=== PATIENT | female | born 1950 | race Caucasian/White ===

== ENCOUNTER 2016-07-04 05:04 | Day surgery (SDC) | payer OTHER ==
[2016-06-29 11:22] LABS: MANUAL DIFF NEEDED? NO
[2016-06-29 11:24] LABS: BASO% 0.3 % (0.0-0.8); EOS# 0.16 X1000 (0.0-0.7); EOS% 1.7 % (0.0-10.0); HEMATOCRIT 38.4 % (37.0-47.0); HEMOGLOBIN 12.4 g/dL (12.0-16.0); IMM GRAN# 0.02 X1000 (0.0-0.04); IMM GRAN% 0.2 % (0.0-0.5); LYMPH# 1.69 X1000 (1.2-3.4); MCH 30.1 PG (27-31); MCHC 32.3 g/dL (33-37); MCV 93.2 FL (81-99); MONO# 0.82 X1000 (0.11-0.59); MONO% 8.7 % (1.7-9.3); MPV 10.1 FL (7.4-10.4); NEUT% 71.1 % (42.2-75.2); PLT 248 X1000 (130-400); RBC 4.12 XMIL (4.2-5.4)
[2016-06-29 12:04] LABS: AGAP 12; BUN 16 mg/dL (8-22); CALCIUM 9.1 mg/dL (8.8-10.2); CHLORIDE 98 mmol/L (98-107); COSMO 280; POTASSIUM 3.8 mmol/L (3.5-5.1); SODIUM 140 mmol/L (136-145); TCO2 30 mmol/L (25-35)
--- NOTE | 2016-06-29 14:12 | EKG Report ---
Test Performed on : 06/29/2016 11:00:13 AM Test Reason : PAT Blood Pressure : / mmHG Vent. Rate : 065 BPM Atrial Rate : 065 BPM P-R Int : 176 ms QRS Dur : 084 ms QT Int : 360 ms P-R-T Axes : 065 047 153 degrees QTc Int : 374 ms Normal sinus rhythm. ST & T wave abnormality, consider lateral ischemia Nonspecific ST abnormality Inferior leads Abnormal ECG No previous ECGs available Confirmed by Otoniel Claros MD ([id number]) on 06/30/2016 8:56:09 PM
[2016-07-04] MEDS ORDERED: PEPCID ONE (05:31)
[2016-07-04] MEDS ORDERED: LR 1,000 ML ONE ×2 (05:31→09:41)
[2016-07-04] MEDS ORDERED: KEFZOL 1 GM/D5W 50 ML ONE (05:31)
[2016-07-04] MEDS ORDERED: NAROPIN 0.5% ONE (06:36)
[2016-07-04] MEDS ORDERED: MARCAINE 0.25% PF ONE (07:59)
[2016-07-04] MEDS ORDERED: DIPRIVAN 1% ONE (09:08)
[2016-07-04] MEDS ORDERED: FENTANYL ONE (09:08)
[2016-07-04] MEDS ORDERED: VERSED ONE (09:09)
[2016-07-04] MEDS ORDERED: XYLOCAINE-MPF 2% ONE (09:41)
[2016-07-04] MEDS ORDERED: EPHEDRINE ONE (09:41)
[2016-07-04] MEDS ORDERED: QUELICIN (DOSE) ONE (09:41)
[2016-07-04] MEDS ORDERED: OFIRMEV 1000 MG/ISOTONIC SOLN 100 ML ONE (09:41)
[2016-07-04] MEDS ORDERED: ZOFRAN ONE (09:41)
[2016-07-04] MEDS ORDERED: ZEMURON ONE (09:41)
[2016-07-04] MEDS ORDERED: NORCO-10 ONE (09:42)
[2016-07-04] MEDS ORDERED: NORCO-10 PO PRN (09:55)
[2016-07-04 10:40] VITALS: BP 129/57
--- NOTE | 2016-07-04 11:00 | OPERATIVE NOTE ---
PROCEDURE DATE: 07/04/2016 PREOPERATIVE DIAGNOSIS: Right rotator cuff tear and acromioclavicular joint arthritis. POSTOPERATIVE DIAGNOSIS: Right rotator cuff tear, acromioclavicular joint arthritis and partial biceps tear. PROCEDURE PERFORMED: Arthroscopy of right shoulder with subacromial decompression, distal clavicle resection, arthroscopic rotator cuff repair and biceps tenotomy. SURGEON: Emmett Beverly MD PESTICIDE APPLICATOR: NIC Bailey ANESTHESIA: General. IV FLUIDS: 1500 mL of lactated Ringer's. ESTIMATED BLOOD LOSS: 25 mL. COMPLICATIONS: None. INDICATIONS: The patient is a pleasant 66-year-old female with a chronic history of pain and discomfort in the right shoulder. MRI was obtained and revealed findings consistent with a rotator cuff tear and some AC joint arthritis. A recommendation to proceed with arthroscopy was offered with subacromial compression with distal clavicle resection and arthroscopic rotator cuff repair. Risks and benefits of surgery were explained, including risks of anesthesia, , bleeding, infection, failure to relieve pain, postop stiffness, nerve injury, blood clots, and other imponderables. All questions were answered. The patient and family wished to proceed with surgery. DETAILS OF OPERATION: The patient was taken to the operating room and placed supine on the operating table. Once adequate anesthesia was obtained, the patient was placed in the left lateral decubitus position on a beanbag with an axillary roll. The right shoulder was subsequently prepped and draped in the usual sterile fashion. We placed 12 pounds of longitudinal traction. A standard posterior incision was made with an 11 blade. A blunt- tip trocar with overlying cannula was introduced. The arthroscope was introduced. An anterior portal was then made. Inspection of the glenohumeral joint revealed no evidence of chondromalacia. She did have evidence of fraying and partial tearing of the biceps. We proceeded with biceps tenotomy. There was evidence of full-thickness rotator cuff tear involving the supraspinatus tendon. There was no evidence of loose body in the inferior pouch. Attention was then turned to the subacromial space. A lateral incision was made in the standard fashion. A 90-degree ArthroCare wand was introduced to debride the undersurface of the acromion. Subacromial decompression was then conducted from anterior lateral to anterior medial. After smoothly contouring the undersurface, adequate decompression was confirmed through the lateral portal using bony block technique. Attention was then turned to the AC joint. After initial debridement, there was evidence of AC joint arthritis. Subacromial decompression was conducted from anterior lateral to anterior medial. After smoothly contouring the undersurface, adequate decompression was confirmed through the lateral portal using bony block technique. Attention was then turned to the AC joint. After initial debridement, there was evidence of AC joint arthritis. Distal clavicle resection was then performed in the standard fashion along with 1-2 mm of the articular surface of the acromion. There appeared be good resection confirmed through the anterior portal. Attention was then turned to the bursal surface of the rotator cuff. A Passport cannula was placed in the lateral portal. Debridement of the insertion site and light decortication was conducted. A spinal needle was placed along the superior lateral aspect of the shoulder. This was followed by a small stab incision. A punch was then placed on the anteromedial sulcus. This was followed by a 5.5 mm Bio-Composite Healicoil anchor. The UltraTape and #2 UltraBraid was passed with the 2 limbs of the UltraBraid passed between the 2 limbs of the tape. After this had been performed, a second 5.5 mm Bio-Composite Healicoil anchor was then placed more posterior medial aspect of the sulcus. The sutures were passed in a similar fashion. The #2 UltraBraid was then tied on each anchor. One limb from each UltraBraid and the 1st and 3rd UltraTape limbs were retrieved through the lateral portal. Using a 5.5 mm MultiFIX S PEEK anchor along the anterior lateral proximal humerus. The sutures were passed through the anchor after a forestry pilot hole had been placed. The sutures were tensioned and the anchor was seated. It had good purchase. They were then cut. The remaining suture limbs were retrieved through the lateral portal and a 2nd subsequent 5.5 mm PEEK MultiFIX S anchor was then placed at the posterior aspect of the tear along the proximal humerus in a similar fashion. Sutures were cut. There appeared to be good repair. The arthroscope was then removed. Sutures of 3-0 nylon were used to close the skin. Marcaine 0.25%without epinephrine was injected. Adaptic, sterile 4 x 4's, ABD pad, and tape were applied to the right shoulder, followed by shoulder immobilizer. All counts were correct. The patient tolerated the procedure well and was transferred to the recovery room in stable condition. MTDD
== END 2016-07-04 11:20 | disposition home or self-care (01) ==
LOC: OPS 05:04
PROVIDERS: ATTEND Orthopaedic Surgery Adult Reconstructive Orthopaedic Surgery
DX: M75.101 Unspecified rotator cuff tear or rupture of right shoulder, not specified as traumatic (principal); M19.011 Primary osteoarthritis, right shoulder; I10 Essential (primary) hypertension; K21.9 Gastro-esophageal reflux disease without esophagitis
CPT/HCPCS: 80048; 85025; 93005; 93010; J0131; J0330; J0690; J2250; J2405; J2795; J3010; J7120; S0020